=== PATIENT | male | born 1995 | race Caucasian/White ===

== ENCOUNTER → 2021-01-27 | Day surgery (SDC) | payer OTHER ==
[~2021-01-27] VITALS: Ht 177.8 cm; Wt 72.6 kg
[2021-01-27 11:21] LABS: BASOPHIL 0.8 % (0-2); EOSINOPHIL 1.3 % (0-5); HGB 17.4 g/dl (13.2-18.0); LYMPHOCYTE 41.4 % (15-48); MCH 29.5 pg (25.0-31.0); MCHC 34.1 g/dL (32.0-36.0); MCV 86.6 fL (78.0-100.0); MONOCYTE 12.6 % (0-12); NEUTROPHIL 43.6 % (41-80); NRBC 0; PLT 241 K/uL (150-400); RBC 5.89 M/uL (4.70-6.00); RDW 11.6 % (11.5-14.0); WBC 7.5 K/uL (4.0-10.5)
== END | disposition home or self-care (01) ==
LOC: FAS 10:38
PROVIDERS: Oral & Maxillofacial Surgery
DX: K01.1 Impacted teeth (principal); K04.7 Periapical abscess without sinus; K02.9 Dental caries, unspecified; J45.909 Unspecified asthma, uncomplicated; F17.210 Nicotine dependence, cigarettes, uncomplicated; F41.8 Other specified anxiety disorders; Z88.0 Allergy status to penicillin
CPT/HCPCS: D7140; D7240; 36415; 85025; J1100; J1885; J2250; J2405; J2704; J7120